=== PATIENT | female | born 1960 | race Asian ===

== ENCOUNTER 2022-04-10 09:02 | Emergency (ER) | payer SELFPAY ==
--- NOTE | 2022-04-10 11:13 | Emergency Department Report ---
ED ENT HPI - General Chief complaint: Sore Throat Stated complaint: SORE THROAT Time Seen by Provider: 04/10/22 10:52 Source: patient Mode of arrival: Ambulatory Limitations: No Limitations - History of Present Illness Initial comments: 62-year-old female presents to the ED complaining of sore throat x3 months. She states that she was seen 1 month ago at [facility] and was sent home on antibiotic. She states that she did not know the name of antibiotic but states that her sore throat has no improved. Patient's sister states that sister smokes a pack of cigarettes a day. Patient denies any sore throat at present time. Sister states that they had an appointment at [facility] today for follow-up with ENT, due to insurance she was not able to keep the appointment. His sister states that patient do not like to be compliant with her appointment. Patient is alert and oriented x3. No acute distress noted no ill appearance noted. Patient denies any fever chills nausea or vomiting at present time. MD complaint: sore throat - Related Data Allergies Allergy/AdvReac Type Severity Reaction Status Date / Time No Known Allergies Allergy Verified 04/10/22 09:13 ED Dental HPI - General Chief complaint: Sore Throat Stated complaint: SORE THROAT Time Seen by Provider: 04/10/22 10:52 Source: patient Mode of arrival: Ambulatory Limitations: No Limitations - Related Data Allergies Allergy/AdvReac Type Severity Reaction Status Date / Time No Known Allergies Allergy Verified 04/10/22 09:13 ED Review of Systems ROS: Stated complaint: SORE THROAT Other details as noted in HPI Constitutional: denies: chills, fever Eyes: denies: eye pain, eye discharge, vision change ENT: denies: ear pain, throat pain Respiratory: denies: cough, shortness of breath, wheezing Cardiovascular: denies: chest pain, palpitations Endocrine: no symptoms reported Gastrointestinal: denies: abdominal pain, nausea, diarrhea Genitourinary: denies: urgency, dysuria, discharge Musculoskeletal: denies: back pain, joint swelling, arthralgia Skin: denies: rash, lesions Neurological: denies: headache, weakness, paresthesias Psychiatric: denies: anxiety, depression Hematological/Lymphatic: denies: easy bleeding, easy bruising ED Past Medical Hx - Past Medical History Previous Medical History?: No - Surgical History Past Surgical History?: No - Social History Smoking Status: Never Smoker Substance Use Type: None ED Physical Exam - General Limitations: No Limitations General appearance: alert, in no apparent distress - Head Head exam: Present: atraumatic, normocephalic - Eye Eye exam: Present: normal appearance - ENT ENT exam: Present: mucous membranes moist - Expanded ENT Exam Expanded Throat exam: Positive: normal inspection - Neck Neck exam: Present: normal inspection - Respiratory Respiratory exam: Present: normal lung sounds bilaterally. Absent: respiratory distress - Cardiovascular Cardiovascular Exam: Present: regular rate, normal rhythm. Absent: systolic murmur, diastolic murmur, rubs, gallop - GI/Abdominal GI/Abdominal exam: Present: soft, normal bowel sounds - Extremities Exam Extremities exam: Present: normal inspection - Back Exam Back exam: Present: normal inspection - Neurological Exam Neurological exam: Present: alert, oriented X3 - Psychiatric Psychiatric exam: Present: normal affect, normal mood - Skin Skin exam: Present: warm, dry, intact, normal color. Absent: rash ED Course Vital Signs 04/10/22 09:10 Temperature 97.9 F Pulse Rate 57 L Respiratory 16 Rate Blood Pressure 157/73 O2 Sat by Pulse 100 Oximetry ED Medical Decision Making - Medical Decision Making 62-year-old female presents to the ED complaining of sore throat x3 months. She states that she was seen 1 month ago at [facility] and was sent home on antibiotic. She states that she did not know the name of antibiotic but states that her sore throat has no improved. Patient's sister states that sister smokes a pack of cigarettes a day. Patient denies any sore throat at present time. Sister states that they had an appointment at [facility] today for follow-up with ENT, due to insurance she was not able to keep the appointment. His sister states that patient do not like to be compliant with her appointment. Patient is alert and oriented x3. No acute distress noted no ill appearance noted. Patient denies any fever chills nausea or vomiting at present time. Physical examination is unremarkable. Advise patient to keep appointment with [facility] clinic. Rapid strep a antigen negative Rechecked the patient is resting quietly quietly and comfortable and feeling better. I discussed the results of diagnostic study, my clinical impression and the plan for further treatment with the patient. Patient agrees with plan and discharge at this present time. All question addressed. I have given the patient instruction regarding a diagnosis ,expectation ,follow- up and return precaution. I explained to the patient that emergent condition may arise and to return to the ED for new worsen and any new persisting condition. I have explained the importance of following up with the primary care physician or referral physician listed below has instructed. The patient verbalized understanding of discharge instruction. Critical care attestation.: If time is entered above; I have spent that time in minutes in the direct care of this critically ill patient, excluding procedure time. ED Disposition Clinical Impression: Sore throat (viral) Disposition: 01 HOME / SELF CARE / HOMELESS Is pt being admited?: No Does the pt Need Aspirin: No Condition: Stable Instructions: Viral Respiratory Infection, [id number] Additional Instructions: Keep appointment at [facility] Return to the ED for any worsening symptom May follow-up with a ENT in [facility] if you choose Time of Disposition: 11:16
[2022-04-10 11:45] VITALS: BP 147/87
== END 2022-04-10 11:45 | disposition home or self-care (01) ==
LOC: ED 09:02
DX: J02.9 Acute pharyngitis, unspecified (principal)
CPT/HCPCS: 87116; 87430; 99283